=== PATIENT | male | born 2000 | race Caucasian/White ===

== ENCOUNTER 2022-11-13 13:40 | Emergency (ER) | payer OTHER ==
[~2022-11-13] VITALS: Ht 177.8 cm; Wt 104.2 kg
[~2022-11-13 13:40] MED LIST: MEDROL4 M1 PO; PENICILLIN V P500 MG PO
[2022-11-13] MEDS ORDERED: IBU600 MG PO (14:07)
[2022-11-13] MEDS ORDERED: DOXYCYCLINE HY100 MG PO (14:07)
== END 2022-11-13 14:33 | disposition home or self-care (01) ==
LOC: ED 13:40
DX: J02.9 Acute pharyngitis, unspecified (principal)
CPT/HCPCS: 87880; 99283